=== PATIENT | female | born 1990 | race Two or more races ===

== ENCOUNTER 2019-06-15 12:50 | Emergency (ER) | payer BC, MEDICAID ==
[~2019-06-15] VITALS: Ht 160 cm; Wt 63.5 kg
[2019-06-15 13:30] VITALS: BP 110/57
[2019-06-15 14:07] LABS: BASOPHILS % (AUTO) 0.7 % (0.0-2.0); EOSINOPHILS % (AUTO) 1.2 % (0.0-3.0); HEMATOCRIT 36.9 % (37.0-47.0); LYMPHOCYTES % (AUTO) 16.8 % (20.0-45.0); MEAN CORPUSCULAR VOLUME 85 FL (80-99); MONOCYTES % (AUTO) 6.1 % (1.0-10.0); NEUTROPHILS % (AUTO) 75.2 % (45.0-75.0); PLATELET COUNT 211 K/UL (150-450); RED BLOOD COUNT 4.34 M/UL (4.20-5.40); RED CELL DISTRIBUTION WIDTH 11.7 % (11.6-14.8); WHITE BLOOD COUNT 10.7 K/UL (4.8-10.8)
[2019-06-15 14:07] LABS: APPEARANCE,URINE CLEAR; BILIRUBIN, URINE NEGATIVE (NEGATIVE); COLOR,URINE PALE YELLOW; GLUCOSE, URINE (UA) NEGATIVE (NEGATIVE); KETONES,URINE NEGATIVE (NEGATIVE); LEUKOCYTE ESTERASE ,URINE NEGATIVE (NEGATIVE); NITRITE,URINE NEGATIVE (NEGATIVE); PH,URINE 6.5 (4.5-8.0); PROTEIN,URINE NEGATIVE (NEGATIVE); UROBILINOGEN,URINE NORMAL MG/DL (0.0-1.0)
--- NOTE | 2019-06-15 14:13 | Emergency Room Report ---
History of Present Illness General Chief Complaint: Female Urogenital Problems Source: Patient Present Illness HPI 28-year-old female presents to the emergency department complaining of 10 out of 10 severity left lower quadrant and pelvic abdominal pain x2 days. Patient also reports dysuria x2 days. Patient states she is currently approximately 14 weeks . She has had IUP established by her [employer] B[employer] ATT[employer]ING MACHINE OPERATOR however she states that her [employer] ATT[employer]ING MACHINE OPERATOR is currently closed/shut down. Patient states that she is G3, P0 she reports some mild constipation, LBM was 2 days ago. She denies diarrhea, nausea or vomiting. She denies fevers or chills. She denies history or suspicion for STI. She denies vaginal discharge or bleeding. No other aggravating or relieving factors at this time. COVID-19 risk:Contact w/high r: No COVID-19 risk:Travel to affect: No Has patient experienced buckner: No Allergies: Coded Allergies: No Known Allergies (Verified Allergy, Unknown, 01/24/10) Patient History Past Medical History: see triage record Past Surgical History: none Pertinent Family History: none Last Menstrual Period: 02/27/19 Now: Yes - 14 weeks : 3 Para: 0 Reviewed Nursing Documentation: PMH: Agreed; PSxH: Agreed Nursing Documentation-PMH Past Medical History: No Stated History Review of Systems All Other Systems: negative except mentioned in HPI Physical Exam Vital Signs Date Time Temp Pulse Resp B/P (MAP) Pulse Ox O2 Delivery O2 Flow Rate FiO2 06/15/19 12:54 98.1 71 18 108/53 (71) 97 Room Air Sp02 EP Interpretation: reviewed, normal General Appearance: no apparent distress, alert, GCS 15, non-toxic Head: normocephalic, atraumatic Eyes: bilateral eye normal inspection, bilateral eye PERRL ENT: hearing grossly normal, normal voice Neck: full range of motion Respiratory: lungs clear, normal breath sounds, speaking full sentences Cardiovascular #1: regular rate, rhythm Gastrointestinal: normal bowel sounds, soft, non-distended, no guarding, tenderness - mild left adnexal ttp. Rectal: deferred Genitourinary: normal inspection, no CVA tenderness, adnexa normal Musculoskeletal: normal range of motion, gait/station normal, non-tender Neurologic: alert, motor strength/tone normal, oriented x3, sensory intact, responsive, speech normal Psychiatric: judgement/insight normal Skin: no rash, normal color, normal inspection Lymphatic: no adenopathy Medical Decision Making PA Attestation Dr. Samuel is my supervising Physician whom patient management has been discussed with. Diagnostic Impression: Primary Impression: Abdominal pain during in first trimester ER Course 28-year-old female presents to the emergency department complaining of 10 out of 10 severity left lower quadrant and pelvic abdominal pain x2 days. Patient also reports dysuria x2 days. Patient states she is currently approximately 14 weeks . She has had IUP established by her [employer] BOTT[employer] ATTACHING MACHINE OPERATOR however she states that her [employer] ATTACHING MACHINE OPERATOR is currently closed/shut down. Patient states that she is G3, P0 she reports some mild constipation, LBM was 2 days ago. She denies diarrhea, nausea or vomiting. She denies fevers or chills. She denies history or suspicion for STI. She denies vaginal discharge or bleeding. No other aggravating or relieving factors at this time. Ddx considered but are not limited to: Fibroid, ectopic , Ovarian torsion, Ovarian Cyst, UTI, Spontaneous , Vital signs: are WNL, pt. is afebrile Pelvic Exam: Deferred H&PE are most consistent with: possible left ovarian torsion, vs. cyst, TOA requires imaging. ORDERS: -CBC:WNL -CMP: WNL -Lipase: WNL -UA: WNL -Urine hcg- Positive -Serum Hcg Quant: 30851 -Pelvic US complete- normal intrauterine estimated at 15weeks 1 day gestation. FHR 147 ED INTERVENTIONS: -Pyridium PO -Tylenol PO -T#3 PO OBGYN Consult w. Dr. barbosa. Per consult patient is stable for close outpatient follow-up with [employer] in addition to strict ED return precautions. Patient may receive Tylenol 3. Pt. has improvement of her pain with ED interventions. Close outpatient [employer] follow-up as well as strict ED return precautions were discussed with this patient. She verbalizes her understanding and agreement with this plan and will be receiving [employer]INE [employer]PERATOR contact information. DISCHARGE: At this time pt. is stable for d/c to home. Will provide printed patient care instructions, and any necessary prescriptions. Care plan and follow up instructions have been discussed with the patient prior to discharge. Labs Test 06/15/19 13:26 06/15/19 13:54 Urine Color Pale yellow Urine Appearance Clear Urine pH 6.5 (4.5-8.0) Urine Specific [place]ice 1.000 (1.005-1.035) Urine Protein Negative (NEGATIVE) Urine Glucose (UA) Negative (NEGATIVE) Urine Ketones Negative (NEGATIVE) Urine Blood Negative (NEGATIVE) Urine Nitrite Negative (NEGATIVE) Urine Bilirubin Negative (NEGATIVE) Urine Urobilinogen Normal MG/DL (0.0-1.0) Urine Leukocyte Esterase Negative (NEGATIVE) Urine HCG, Qualitative Positive (NEGATIVE) White Blood Count 10.7 K/UL (4.8-10.8) Red Blood Count 4.34 M/UL (4.20-5.40) Hemoglobin 13.0 G/DL (12.0-16.0) Hematocrit 36.9 % (37.0-47.0) Mean Corpuscular Volume 85 FL (80-99) Mean Corpuscular Hemoglobin 29.9 PG (27.0-31.0) Mean Corpuscular Hemoglobin Concent 35.1 G/DL (32.0-36.0) Red Cell Distribution Width 11.7 % (11.6-14.8) Platelet Count 211 K/UL (150-450) Mean Platelet Volume 8.2 FL (6.5-10.1) Neutrophils (%) (Auto) 75.2 % (45.0-75.0) Lymphocytes (%) (Auto) 16.8 % (20.0-45.0) Monocytes (%) (Auto) 6.1 % (1.0-10.0) Eosinophils (%) (Auto) 1.2 % (0.0-3.0) Basophils (%) (Auto) 0.7 % (0.0-2.0) Sodium Level 140 MMOL/L (136-145) Potassium Level 3.9 MMOL/L (3.5-5.1) Chloride Level 106 MMOL/L (98-107) Carbon Dioxide Level 21 MMOL/L (21-32) Anion Gap 13 mmol/L (5-15) Blood Urea Nitrogen 7 mg/dL (7-18) Creatinine 0.5 MG/DL (0.55-1.30) Estimat Glomerular Filtration Rate > 60 mL/min (>60) Glucose Level 96 MG/DL (74-106) Calcium Level 9.4 MG/DL (8.5-10.1) Total Bilirubin 0.2 MG/DL (0.2-1.0) Aspartate Amino Transf (AST/SGOT) 21 U/L (15-37) Alanine Aminotransferase (ALT/SGPT) 28 U/L (12-78) Alkaline Phosphatase 48 U/L (46-116) Total Protein 7.2 G/DL (6.4-8.2) Albumin 3.2 G/DL (3.4-5.0) Globulin 4.0 g/dL Albumin/Globulin Ratio 0.8 (1.0-2.7) Lipase 244 U/L (73-393) Human Chorionic Gonadotropin, Quant 84464 mIU/mL (1-6) CT/MRI/US Diagnostic Results CT/MRI/US Diagnostic Results #1: Imaging Test Ordered: OB first trimester US Impression " IUP measured at 15 weeks 1 day with a heart rate of 147 bpm. Cephalic presentation. Anterior placenta without abruption or previa. Closed cervix with a length of 3.8 cm." Per official radiology report- Please see report for specific details. CT/MRI/US Diagnostic Results #2: Imaging Test Ordered: TransVaginal Pelvic US Impression " IUP is seen again, no myometrial mass. Right ovary is normally sized with no mass. Left ovary is normally sized with no mass. There is trace free fluid seen in the pelvis." Per official radiology report- Please see report for specific details. Last Vital Signs Date Time Temp Pulse Resp B/P (MAP) Pulse Ox O2 Delivery O2 Flow Rate FiO2 06/15/19 13:30 98.1 77 16 110/57 96 Room Air Disposition: HOME, SELF-CARE Condition: Stable Physician Consult: OBGYN: Dr. barbosa Scripts Lactulose (LACTULOSE*) 20 Gm/30 Ml Solution 15 ML ORAL BID, #120 ML 0 Refills Prov: Aimee Wolfe 06/15/19 Acetaminophen With Codeine (T#3) (TYLENOL #3 TAB*) Y Tab 1 TAB ORAL Q8HR PRN for For Pain, #5 TAB Prov: Aimee Wolfe 06/15/19 Referrals: Gretchen Barbosa MD THIS IS THE OBGYN WE CONSULTED WITH REGARDING YOUR ED VISIT. [facility] Patient Instructions: Abdominal Pain During Additional Instructions: Take medications as directed. Follow up with a OBGYN within 3 days, even if your symptoms have resolved. Return sooner to ED if new symptoms occur, or current symptoms become worse. - Please note that this Emergency Department Report was dictated using [employer] turbine [employer] technology software, occasionally this can lead to erroneous entry secondary to interpretation by the dictation equipment. Aimee Wolfe Jun 15, 2019 14:13
[2019-06-15 14:36] LABS: ANION GAP 13 mmol/L (5-15); BLOOD UREA NITROGEN 7 mg/dL (7-18); CALCIUM 9.4 MG/DL (8.5-10.1); CARBON DIOXIDE 21 MMOL/L (21-32); CHLORIDE 106 MMOL/L (98-107); CREATININE 0.5 MG/DL (0.55-1.30); POTASSIUM 3.9 MMOL/L (3.5-5.1); SODIUM 140 MMOL/L (136-145)
[2019-06-15 14:40] LABS: ALANINE AMINOTRANSFERASE 28 U/L (12-78); ALBUMIN 3.2 G/DL (3.4-5.0); ALBUMIN/GLOBULIN RATIO 0.8 (1.0-2.7); ALKALINE PHOSPHATASE 48 U/L (46-116); ASPARTATE AMINO TRANSFERASE 21 U/L (15-37); BILIRUBIN,TOTAL 0.2 MG/DL (0.2-1.0)
[2019-06-15 15:54] VITALS: BP 112/59
[2019-06-15 18:18] VITALS: BP 114/62
--- NOTE | 2019-06-15 19:50 | Diagnostic Imaging Report ---
EXAM: US Pelvis Transvaginal CLINICAL HISTORY: PAIN TECHNIQUE: Real-time transvaginal pelvic ultrasound with image documentation. Transvaginal imaging was used for better evaluation of the endometrium and adnexa. COMPARISON: 06/15/2019 FINDINGS: Intrauterine is again seen. Uterus/cervix: No myometrial mass. Right ovary: Normal sized. No mass. Left ovary: Normal sized. No mass. Free fluid: Trace free fluid. IMPRESSION: Ovaries are within normal limits. Trace free fluid in the pelvis.
[2019-06-15] MEDS ORDERED: Tylenol #3 tab (300mg/30mg) ORAL ONE (20:15)
[2019-06-15] MEDS ORDERED: Acetaminophen 650mg/20.3ml ORAL ONE (20:30)
[2019-06-15] MEDS ORDERED: Acetaminophen Soln 160mg/5ml ORAL ONE (20:30)
[2019-06-15] MEDS ORDERED: ACETAMINOPHEN-1 EAC1 ORAL (20:35)
[2019-06-15] MEDS ORDERED: LACTULOSE20 GM/301 ORAL (20:35)
[2019-06-15 20:55] VITALS: BP 122/70
--- NOTE | 2019-06-17 10:38 | Diagnostic Imaging Report ---
ADDENDUM - Added by Zeb Farah M.D. on 06/15/2019 3:45 PM (-07:00) Addendum: Ovaries are not identified EXAM: US , Limited CLINICAL HISTORY: ABD PAIN TECHNIQUE: Real-time limited ultrasound of the maternal uterus with image documentation. COMPARISON: No relevant prior studies available. FINDINGS: There is a live intrauterine measuring 15 weeks 1 day with heart rate of 147 BPM. Cephalic presentation. Anterior placenta without abruption or previa. Closed cervix, 3.8 cm in length. IMPRESSION: Live IUP measuring 15 weeks 1 day. <MYCVCSECTION> Communications: 06/15/19 15:47 Call From [facility] Aimee Silva on 06/14 15:43 (-07: 00) 06/15/19 17:58 Call From [facility] Dr. Rob on 06/14 17:55 (-07:00)
== END 2019-06-15 20:55 | disposition home or self-care (01) ==
LOC: EMR 13:41
DX: O26.91 Pregnancy related conditions, unspecified, first trimester (principal); R10.30 Lower abdominal pain, unspecified; Z3A.15 15 weeks gestation of pregnancy; R30.0 Dysuria; K59.00 Constipation, unspecified
CPT/HCPCS: 36415; 76805; 76830; 80053; 81003; 81025; 83690; 84702; 85025; Z7502; 99284